=== PATIENT | female | born 1965 | race Caucasian/White ===

== ENCOUNTER 2018-02-10 11:15 | Outpatient (CLI) | payer BC ==
[2013-06-14 06:12] VITALS: BMI 28.3
[~2018-02-10 11:15] MED LIST: NORCO 10/325 TA1 TA1 PO
== END 2018-02-10 11:16 | disposition home or self-care (01) ==
LOC: D.MAMMO 11:15
DX: Z12.31 Encounter for screening mammogram for malignant neoplasm of breast (principal)